=== PATIENT | male | born 1970 | race Caucasian/White ===

== ENCOUNTER 2016-09-15 08:22 | Day surgery (SDC) | payer MEDICARE, OTHER ==
[2016-09-07 12:10] VITALS: BMI 28.1
[~2016-09-15 08:22] MED LIST: LACTATED RINGERS 1,000 ML IV SCH
[2016-09-15] MEDS ORDERED: LIDOCAINE 1% 20 ML VIAL (10MG/ML) FOR IV START INTRADERMA ONE (09:09)
[2016-09-15 09:10] LABS: Glucose,Whole Blood 134 mg/dL (75-99)
[2016-09-15 09:11] VITALS: TEMP 97.5
[2016-09-15] MEDS ORDERED: LIDOCAINE 1% INJ 10MG/ML (20 ML MDV) ONE (09:14)
[2016-09-15] MEDS ORDERED: PROPOFOL 10 MG/ML 20 ML VIAL IV ONE (09:14)
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
--- NOTE | 2016-09-15 09:31 | P.OP ---
Date of Procedure: 09/15/16 Preoperative Diagnosis: GI bleed Postoperative Diagnosis: External hemorrhoids Diverticulosis Rectal polyp Procedure(s) Performed: Colonoscopy Anesthesia: MAC Surgeon: Isidro Ervin Pathology: other (Rectal polyp) Condition: stable Disposition: PACU Description of Procedure: The patient's placed on the endoscopy table in the lateral position. He received IV sedation. Digital rectal exam was performed which revealed external and internal hemorrhoids. The flexible colonoscope was then placed patient anus passed throughout the entire colon. The ileocecal valve was visualized. The cecum, ascending and transverse colon appeared normal. In the descending; was mild diverticular changes. Scope was then brought back the rectum and this appeared normal. Scope was withdrawn for patient.
[2016-09-15 10:15] VITALS: BP 127/80; PULSE 67; RESP 18
--- NOTE | 2016-09-18 11:49 | CDI ---
Pathology received a biopsy, yet there is not a biopsy documented as being done in procedure description on your operative note. Was a biopsy done? Please issue an addendum to your operative reporting stating if a biopsy was done or not done. If it was done, please describe the biopsy method. Thank you. GIBSON Hawk
== END 2016-09-15 10:28 | disposition home or self-care (01) ==
LOC: ORWHC2ENDO 08:22
PROVIDERS: ATTEND Surgery
DX: K64.4 Residual hemorrhoidal skin tags (principal); K64.8 Other hemorrhoids; K57.30 Diverticulosis of large intestine without perforation or abscess without bleeding; K62.1 Rectal polyp; Z87.19 Personal history of other diseases of the digestive system; E11.9 Type 2 diabetes mellitus without complications; I10 Essential (primary) hypertension; E78.5 Hyperlipidemia, unspecified; Z87.828 Personal history of other (healed) physical injury and trauma; Z79.84 Long term (current) use of oral hypoglycemic drugs; Z79.82 Long term (current) use of aspirin; Z79.899 Other long term (current) drug therapy; F17.200 Nicotine dependence, unspecified, uncomplicated
CPT/HCPCS: 88305; 45380; J2001; J2704

== ENCOUNTER 2021-03-06 00:25 | Observation (INO) | payer MEDICARE, OTHER ==
--- NOTE | 2021-03-06 00:52 | XR ---
EXAMINATION TYPE: XR chest 2V DATE OF EXAM: 03/06/2021 COMPARISON: 11/23/2012 HISTORY: Chest pain TECHNIQUE: FINDINGS: Heart and mediastinum are normal. Lungs are clear. Diaphragm is normal. Bony thorax is inta ct. IMPRESSION: Normal chest. No change.
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
[2021-03-06 01:07] LABS: Basophils % (A) 0 %; Eosinophils # (A) 0.1 k/uL (0-0.7); Eosinophils % (A) 2 %; HCT 37.8 % (39.0-53.0); Lymphocytes # (A) 1.6 k/uL (1.0-4.8); Lymphocytes % (A) 20 %; MCH 30.3 pg (25.0-35.0); MCHC 34.4 g/dL (31.0-37.0); Monocytes # (A) 0.4 k/uL (0-1.0); Monocytes % (A) 5 %; Neutrophils # (A) 5.8 k/uL (1.3-7.7); Neutrophils % (A) 72 %; Platelet Count 348 k/uL (150-450); RBC 4.29 m/uL (4.30-5.90); RDW 13.6 % (11.5-15.5); WBC 8.1 k/uL (3.8-10.6)
[2021-03-06 01:38] LABS: Prothrombin Time 10.3 sec (9.0-12.0)
[2021-03-06 01:40] LABS: ALT 18 U/L (4-49); African American GFR (CKD) >90 (>60 ml/min/1.73 sqM); Albumin 4.6 g/dL (3.5-5.0); Alcohol <10 mg/dL; Anion Gap 11 mmol/L; Blood Urea Nitrogen 11 mg/dL (9-20); Calcium 10.1 mg/dL (8.4-10.2); Carbon Dioxide 22 mmol/L (22-30); Chloride 99 mmol/L (98-107); Glucose 113 mg/dL (74-99); Lipase 1874 U/L (23-300); Non-African American GFR(CKD) >90 (>60 ml/min/1.73 sqM); Sodium 132 mmol/L (137-145); Total Bilirubin 0.4 mg/dL (0.2-1.3); Total Protein 7.3 g/dL (6.3-8.2)
[2021-03-06 01:48] LABS: Partial Thromboplastin Time 21.6 sec (22.0-30.0)
[2021-03-06 02:24] LABS: Potassium 4.4 mmol/L (3.5-5.1)
[2021-03-06] MEDS ORDERED: NITROGLYCERIN SL TABS 0.4 MG TAB SUBLINGUAL PRN (02:24)
[2021-03-06 02:25] LABS: AST 27 U/L (17-59); Alkaline Phosphatase 81 U/L (38-126)
[2021-03-06] MEDS ORDERED: SODIUM CHLORIDE 0.9% 1,000 ML IV STA (02:28)
[2021-03-06 06:31] LABS: Glucose,Whole Blood 105 mg/dL (75-99)
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
[2021-03-06] MEDS: ASPIRIN 81 MG PO SCH ×2 (08:51→11:56)
[2021-03-06] MEDS ORDERED: lisinopriL 10 MG TAB PO SCH (09:00)
[2021-03-06] MEDS ORDERED: FENOFIBRATE 160 MG TAB PO SCH (09:00)
[2021-03-06] MEDS ORDERED: FLUoxetine HCL 20 MG CAP PO SCH (09:00)
[2021-03-06] MEDS ORDERED: LINAGLIPTIN 5 MG TABLET PO SCH (09:00)
[2021-03-06] MEDS ORDERED: ATORVASTATIN 40 MG TAB PO SCH (09:00)
[2021-03-06] MEDS ORDERED: metFORMIN 500 MG TAB PO SCH (09:00)
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
--- NOTE | 2021-03-06 12:01 | ECHOF ---
Referral Reason:chest pain LV function MEASUREMENTS -------- HEIGHT: 185.4 cm WEIGHT: 83.9 kg BP: IVSd: 1.2 cm (0.6 - 1.1) LVIDd: 3.5 cm (3.9 - 5.3) LVPWd: 1.2 cm (0.6 - 1.1) IVSs: 1.7 cm LVIDs: 2.5 cm LVPWs: 1.7 cm LAESV Index (A-L): 19.09 ml/m Ao Diam: 3.2 cm (2.0 - 3.7) AV Cusp: 2.0 cm (1.5 - 2.6) LA Diam: 3.4 cm (2.7 - 3.8) MV EXCURSION: 19.089 mm (> 18.000) MV EF SLOPE: 122 mm/s (70 - 150) EPSS: 2.8 cm MV E Ash: 0.82 m/s MV DecT: 196 ms MV A Ash: 0.90 m/s MV E/A Ratio: 0.90 AR PHT: 639 ms RAP: 5.00 mmHg RVSP: 18.23 mmHg FINDINGS -------- This was a technically good study. The left ventricular size is normal. There is mild concentric left ventricular hypertrophy. Overa ll left ventricular systolic function is mildly impaired with, an EF between 45 - 50 %. The diastol ic filling pattern is normal for the age of the patient 9.92. The right ventricle is normal in size. The left atrial size is normal. Normal LA size by volume 22+/-6 ml/m2. The right atrial size is normal. The aortic valve is trileaflet and appears structurally normal. Trace amount of aortic regurgitatio n. The mitral valve is normal. Mild mitral regurgitation is present. The tricuspid valve appears structurally normal. Trace tricuspid regurgitation present. Right rosalia tricular systolic pressure is normal at < 35 mmHg. There is no pulmonic regurgitation present. The aortic root size is normal. Normal inferior vena cava with normal inspiratory collapse consistent with estimated right atrial pre ssure of 5 mmHg. There is no pericardial effusion. CONCLUSIONS -------- 1. The left ventricular size is normal. 2. There is mild concentric left ventricular hypertrophy. 3. Overall left ventricular systolic function is mildly impaired with, an EF between 45 - 50 %. 4. The diastolic filling pattern is normal for the age of the patient 9.92 5. Trace amount of aortic regurgitation. 6. Mild mitral regurgitation is present. 7. Trace tricuspid regurgitation present. 8. There is no pericardial effusion. LIQUOR MAKER: Yakelin Ortiz RDCS
[2021-03-06 12:02] VITALS: BP 119/77; PULSE 61; RESP 20; TEMP 97.7
[2021-03-06 12:07] LABS: Glucose,Whole Blood 123 mg/dL (75-99)
[2021-03-06] MEDS ORDERED: DOBUTamine DRIP for NUC MED 500 MG in DEXTROSE/WATER 1 250ML.BAG IV PRN (13:06)
[2021-03-06] MEDS ORDERED: clonazePAM 1 MG TAB PO SCH (21:00)
[2021-03-07] MEDS ORDERED: ASPIRIN 325 MG TAB PO SCH (09:00)
--- NOTE | 2021-03-07 11:04 | ECHOS ---
STRESS ECHOCARDIOGRAM DATE OF STUDY: 03/06/2021 INDICATIONS: Chest discomfort. BASELINE HEART RATE: 56 BASELINE BLOOD PRESSURE: 131/85 MAXIMUM HEART RATE: 148 MAXIMUM BLOOD PRESSURE: 157/80 85% MPHR: 145 100% MPHR: 175 METS: NA MAXIMUM STAGE REACHED: 4 TOTAL EXERCISE TIME: 12:13 infusion time CLINICAL INFORMATION: STRESS DATA: Pre-testing physical examination showed a heart rate of 56, pressure 131/85 mmHg. Baseline EKG showed sinus mechanism. Dobutamine infusion at a dose of 10 mcg/kg per minute was initiated and increased to 40 mcg/kg per minute per protocol. The max heart rate was 148, which is about 87% of maximum predicted heart rate. Maximum blood pressure was 152/61 mmHg. Clinically the patient did not have any symptoms of chest pain or chest discomfort and the EKG did not show any significant ST or T-wave abnormalities concerning for ischemia. ANALYSIS: Echocardiogram images from parasternal long axis view, parasternal short axis view, apical 4-chamber and apical 2-chamber views were obtained as the baseline images, at low-dose dobutamine infusion, at the peak of the heart rate as well as on recovery, and the echocardiogram images showed good augmentation in the left ventricular systolic function without any evidence of wall motion abnormalities concerning for ischemia. CONCLUSION: 1. Normal EKG in response to dobutamine. 2. Normal echocardiogram in response to dobutamine. MMODL / IJN: [id number] /
== END 2021-03-06 17:28 | disposition home or self-care (01) ==
LOC: EC 00:25 → 3SCARD 02:48
PROVIDERS: ADMIT Family Medicine; ATTEND Family Medicine
DX: R07.89 Other chest pain (principal); R06.02 Shortness of breath; E11.9 Type 2 diabetes mellitus without complications; I10 Essential (primary) hypertension; E78.5 Hyperlipidemia, unspecified; F31.9 Bipolar disorder, unspecified; F60.5 Obsessive-compulsive personality disorder; F31.30 Bipolar disorder, current episode depressed, mild or moderate severity, unspecified; F17.210 Nicotine dependence, cigarettes, uncomplicated; Z20.822 Contact with and (suspected) exposure to COVID-19; Z79.84 Long term (current) use of oral hypoglycemic drugs; Z79.899 Other long term (current) drug therapy; Z88.5 Allergy status to narcotic agent; Z87.828 Personal history of other (healed) physical injury and trauma; Z96.642 Presence of left artificial hip joint; Z87.19 Personal history of other diseases of the digestive system; Z82.49 Family history of ischemic heart disease and other diseases of the circulatory system; Z71.6 Tobacco abuse counseling; Z71.41 Alcohol abuse counseling and surveillance of alcoholic
CPT/HCPCS: 99285; 36415; 94760; 93005; 93306; 93351; 83880; 80053; 83690; 83735; 84484; 85025; 85610; 85730; 87635; 71046; G0378; G0480; J1250; 80320

== ENCOUNTER 2021-03-24 19:08 | Emergency (ER) | payer MEDICARE, OTHER ==
[2021-03-24 19:30] VITALS: RESP 18
[2021-03-24 20:56] LABS: Amphetamine Screen,Urine Not Detected (NotDetected); Barbiturate Screen,Urine Not Detected (NotDetected); Benzodiazepines Screen,Urine Detected (NotDetected); Cocaine Screen,Urine Not Detected (NotDetected); Methadone Screen, Urine Not Detected (NotDetected); Opiate Screen,Urine Not Detected (NotDetected); Oxycodone Screen, Urine Not Detected (NotDetected); Phencyclidine Screen,Urine Not Detected (NotDetected); Tricyclic Antidepressant,Urine Not Detected (NotDetected); Urn Cannabinoid Scrn Not Detected (NotDetected)
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
[2021-03-24 22:30] VITALS: BP 133/94; PULSE 78
[2021-03-24 23:10] VITALS: TEMP 97.9
== END 2021-03-24 23:04 | disposition home or self-care (01) ==
LOC: EC 19:08
DX: F31.9 Bipolar disorder, unspecified (principal); I10 Essential (primary) hypertension; E11.9 Type 2 diabetes mellitus without complications; Z87.891 Personal history of nicotine dependence; Z88.5 Allergy status to narcotic agent; Z79.84 Long term (current) use of oral hypoglycemic drugs; Z79.899 Other long term (current) drug therapy
CPT/HCPCS: 80306; 82075; 99285

== ENCOUNTER 2021-04-02 00:32 | Inpatient (IN) | payer MEDICARE, MEDICAID ==
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
[2021-04-02] MEDS ORDERED: IBUPROFEN 600 MG TAB PO STA (02:25)
[2021-04-02 03:11] LABS: Appearance,Urine Clear (Clear); Bilirubin,Urine Negative (Negative); Blood,Urine Negative (Negative); Color,Urine Yellow; Glucose,Urine (UA) Negative (Negative); Ketones,Urine Negative (Negative); Leukocyte Esterase,Urine Negative (Negative); Nitrite,Urine Negative (Negative); PH, Urine 6.5 (5.0-8.0); Protein,Urine Negative (Negative); Specific Gravity,Urine 1.017 (1.001-1.035); Urobilinogen,Urine <2.0 mg/dL (<2.0)
[2021-04-02] MEDS ORDERED: ACETAMINOPHEN TAB 325 MG TAB PO PRN (03:36)
[2021-04-02] MEDS ORDERED: MAG HYDROX/AL HYDROX/SIMETH 30 ML CUP PO PRN (03:36)
[2021-04-02] MEDS ORDERED: MAGNESIUM HYDROXIDE 2,400 MG/10 ML CUP PO PRN (03:36)
[2021-04-02] MEDS ORDERED: LORazepam 1 MG TAB PO PRN ×2 (03:36→03:53)
[2021-04-02] MEDS ORDERED: HALOPERIDOL LACTATE 5 MG/ML 1 ML VIAL IM PRN (03:50)
[2021-04-02] MEDS ORDERED: haloperidoL 5 MG TAB PO PRN (03:50)
[2021-04-02] MEDS ORDERED: LORazepam 2 MG/ML INJ IM PRN ×2 (03:50→04:02)
[2021-04-02 04:07] LABS: Amphetamine Screen,Urine Not Detected (NotDetected); Barbiturate Screen,Urine Not Detected (NotDetected); Benzodiazepines Screen,Urine Not Detected (NotDetected); Cocaine Screen,Urine Not Detected (NotDetected); Methadone Screen, Urine Not Detected (NotDetected); Opiate Screen,Urine Not Detected (NotDetected); Oxycodone Screen, Urine Not Detected (NotDetected); Phencyclidine Screen,Urine Not Detected (NotDetected); Tricyclic Antidepressant,Urine Detected (NotDetected); Urn Cannabinoid Scrn Not Detected (NotDetected)
[2021-04-02 06:54] LABS: Basophils % (A) 0 %; Eosinophils # (A) 0.3 k/uL (0-0.7); Eosinophils % (A) 4 %; HCT 38.9 % (39.0-53.0); HGB 12.6 gm/dL (13.0-17.5); Lymphocytes # (A) 2.1 k/uL (1.0-4.8); Lymphocytes % (A) 33 %; MCH 29.5 pg (25.0-35.0); MCHC 32.4 g/dL (31.0-37.0); Mean Platelet Volume 6.9; Monocytes # (A) 0.3 k/uL (0-1.0); Monocytes % (A) 5 %; Neutrophils # (A) 3.5 k/uL (1.3-7.7); Neutrophils % (A) 56 %; Platelet Count 275 k/uL (150-450); RBC 4.28 m/uL (4.30-5.90); RDW 13.4 % (11.5-15.5); WBC 6.3 k/uL (3.8-10.6)
[2021-04-02 07:06] LABS: ALT 22 U/L (4-49); AST 27 U/L (17-59); African American GFR (CKD) >90 (>60 ml/min/1.73 sqM); Albumin 4.3 g/dL (3.5-5.0); Alkaline Phosphatase 77 U/L (38-126); Anion Gap 12 mmol/L; Bilirubin, Delta 0.2 mg/dL (0.0-0.2); Bilirubin,Unconjugated 0.1 mg/dL (0.0-1.1); Blood Urea Nitrogen 20 mg/dL (9-20); Carbon Dioxide 21 mmol/L (22-30); Chloride 104 mmol/L (98-107); Glucose 138 mg/dL (74-99); Non-African American GFR(CKD) >90 (>60 ml/min/1.73 sqM); Potassium 4.7 mmol/L (3.5-5.1); Sodium 137 mmol/L (137-145); Total Bilirubin 0.3 mg/dL (0.2-1.3)
[2021-04-02] MEDS: LINAGLIPTIN 5 MG TABLET PO SCH (08:19)
[2021-04-02] MEDS: metFORMIN 500 MG TAB PO SCH ×2 (08:19→17:48)
[2021-04-02] MEDS: lisinopriL 10 MG TAB PO SCH (08:19)
[2021-04-02 08:20] LABS: Glucose,Whole Blood 95 mg/dL (75-99)
[2021-04-02] MEDS: FENOFIBRATE 160 MG TAB PO SCH (08:20)
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
[2021-04-02 14:55] VITALS: BMI 23.3
[2021-04-02 17:38] LABS: Glucose,Whole Blood 83 mg/dL (75-99)
[2021-04-02 20:49] LABS: Chol/HDL Ratio 1.86 Ratio; LDL Cholesterol,Calculated 24.3 mg/dL (0.0-131.0)
[2021-04-02] MEDS ORDERED: clonazePAM 1 MG TAB PO SCH (21:00)
[2021-04-02] MEDS: PALIPERIDONE 3 MG TAB.ER.24 PO SCH (21:22)
[2021-04-02] MEDS: clonazePAM 0.5 MG TAB PO SCH (21:22)
[2021-04-02] MEDS: ATORVASTATIN 20 MG TAB PO SCH (21:22)
[2021-04-03 07:56] LABS: Glucose,Whole Blood 104 mg/dL (75-99)
[2021-04-03] MEDS: lisinopriL 10 MG TAB PO SCH (07:57)
[2021-04-03] MEDS: LINAGLIPTIN 5 MG TABLET PO SCH (07:57)
[2021-04-03] MEDS: FENOFIBRATE 160 MG TAB PO SCH (07:57)
[2021-04-03] MEDS: clonazePAM 0.5 MG TAB PO SCH (07:57)
[2021-04-03] MEDS: metFORMIN 500 MG TAB PO SCH ×2 (07:57→18:17)
[2021-04-03 08:58] LABS: ALT 26 U/L (4-49); AST 30 U/L (17-59); African American GFR (CKD) >90 (>60 ml/min/1.73 sqM); Albumin 4.7 g/dL (3.5-5.0); Alkaline Phosphatase 75 U/L (38-126); Anion Gap 10 mmol/L; Blood Urea Nitrogen 12 mg/dL (9-20); Calcium 10.3 mg/dL (8.4-10.2); Carbon Dioxide 28 mmol/L (22-30); Chloride 100 mmol/L (98-107); Glucose 116 mg/dL (74-99); Non-African American GFR(CKD) >90 (>60 ml/min/1.73 sqM); Potassium 5.1 mmol/L (3.5-5.1); Sodium 138 mmol/L (137-145); Total Bilirubin 0.4 mg/dL (0.2-1.3); Total Protein 7.5 g/dL (6.3-8.2)
--- NOTE | 2021-04-03 09:38 | P.PN ---
Progress Note - Text Progress Note Date: 04/03/21 Interval History: Patient was seen lying in his bed this morning and was directable and agreeable to speak with commercial real estate underwriter in the office. [ Patient appears to be more appropriately with commercial real estate underwriter. Continues to be concrete in his answers. He states that overall he is doing a bit better." He was feeling anxious this morning around 6 AM and required an Ativan because he "wanted to go back to sleep". He claims that the paliperidone has been helping his thoughts. He states that he is not feeling daniels icidal today and does not feel any "gum pressure"]. He states that he was able to sleep throughout the night. He claims he has a fair appetite. He appears to be more goal oriented and more logical in his answers. At this time patient denies any suicidal or homical ideations, intent or plan. Patient denies any auditory, visual hallucinations and denies any paranoia or delusions. Patient denies any side effects from the medications and has been compliant with meds. Mental Status Exam: General Appearance: Patient appears to be directable, stated age is alert, and attempts to cooperate. Patient appears to have improving hygiene and grooming. Several missing teeth. Behavior: Patient is seated without any agitated behavior. Speech: Patient's speech is fluent and nonpressured. [place]. Mood/Affect: Patient reports their mood is "better", affect is congruent and constricted. Suicidality/Homicidality: Patient denies having any homicidal ideation intent or plan. He is denying any suicidal thoughts at this time. Perceptions: Patient denies any visual hallucinations and denies any auditory hallucinations Though content/process: [place], poverty of content. More logical today. Memory and concentration: AOX3, grossly intact for the purposes of this session. Judgment and insight: Chronically poor, improving moderately Assessment Psychosis unspecified History of traumatic brain injury Anxiety disorder unspecified likely OCD Plan: -Patient continues to meet criteria for inpatient psychiatric admission for symptom stabilization and safety. Patient has signed [adult voluntary form and] [medication consent] and was placed in patient's chart. -Medications: Continue paliperidone 3 mg daily at bedtime for psychosis, Luvox 50 mg twice a day for anxiety/mood, changed Klonopin to 1 mg daily for anxiety. -When necessary Ativan and Haldol for agitation/aggression. -NRT - not needed as patient does not smoke -SW on board for discharge planning. Encouraged the patient to participate in milieu. If patient continues improving than likely discharge back home tomorrow.
[2021-04-03 17:55] LABS: Glucose,Whole Blood 104 mg/dL (75-99)
[2021-04-03] MEDS: ATORVASTATIN 20 MG TAB PO SCH (20:00)
[2021-04-03] MEDS: PALIPERIDONE 3 MG TAB.ER.24 PO SCH (20:00)
[2021-04-04 02:50] VITALS: TEMP 97.6
[2021-04-04] MEDS: FENOFIBRATE 160 MG TAB PO SCH (08:32)
[2021-04-04] MEDS: lisinopriL 10 MG TAB PO SCH (08:32)
[2021-04-04] MEDS: metFORMIN 500 MG TAB PO SCH (08:32)
[2021-04-04] MEDS: LINAGLIPTIN 5 MG TABLET PO SCH (08:33)
[2021-04-04 08:34] VITALS: BP 112/75; PULSE 103; RESP 18
[2021-04-04 08:35] LABS: Glucose,Whole Blood 236 mg/dL (75-99)
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
[2021-04-04] MEDS ORDERED: clonazePAM 1 MG TAB PO SCH (09:00)
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
== END 2021-04-04 13:24 | disposition home or self-care (01) | DRG 885 ==
LOC: EC 00:32 → 3MHU 03:34
PROVIDERS: ADMIT Psychiatry & Neurology Psychiatry; ATTEND Psychiatry & Neurology Psychiatry
DX: F29 Unspecified psychosis not due to a substance or known physiological condition (principal); R45.851 Suicidal ideations; E11.9 Type 2 diabetes mellitus without complications; F31.30 Bipolar disorder, current episode depressed, mild or moderate severity, unspecified; F41.9 Anxiety disorder, unspecified; F60.5 Obsessive-compulsive personality disorder; G89.29 Other chronic pain; I10 Essential (primary) hypertension; K08.89 Other specified disorders of teeth and supporting structures; Z72.0 Tobacco use; Z79.84 Long term (current) use of oral hypoglycemic drugs; Z79.899 Other long term (current) drug therapy; Z20.822 Contact with and (suspected) exposure to COVID-19; Z87.820 Personal history of traumatic brain injury; Z87.828 Personal history of other (healed) physical injury and trauma; Z96.642 Presence of left artificial hip joint; Z82.49 Family history of ischemic heart disease and other diseases of the circulatory system; R45.87 Impulsiveness
CPT/HCPCS: 80053; 80061; 80306; 81003; 82248; 83036; 84443; 85025; 87635; 99284

== ENCOUNTER 2021-12-10 03:18 | Emergency (ER) | payer MEDICARE, OTHER ==
[2021-12-10 06:13] VITALS: BP 126/77; PULSE 84; RESP 17; TEMP 97.6
[2021-12-10] MEDS ORDERED: ACETAMINOPHEN TAB 500 MG TAB PO STA (06:13)
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
== END 2021-12-10 10:55 | disposition home or self-care (01) ==
LOC: EC 03:18
DX: L25.9 Unspecified contact dermatitis, unspecified cause (principal); E11.9 Type 2 diabetes mellitus without complications; I10 Essential (primary) hypertension; Z88.5 Allergy status to narcotic agent; Z87.891 Personal history of nicotine dependence
CPT/HCPCS: 99282

== ENCOUNTER → 2024-07-18 | Outpatient (CLI) | payer MEDICARE, OTHER ==
--- NOTE | 2024-07-18 16:34 | US ---
EXAMINATION TYPE: US kidneys/renal and bladder DATE OF EXAM: 07/18/2024 COMPARISON: US(06/12/2014) CLINICAL INDICATION: Male, 53 years old with history of R77.0 ABNORMALITY OF ALBUMIN; TECHNIQUE: Grayscale imaging of the bilateral kidneys and urinary bladder: FINDINGS: EXAM MEASUREMENTS: Right Kidney: 12.3x5.1x6.0 cm Left Kidney: 11.9x6.3x4.4 cm Right Kidney: No hydronephrosis or masses seen. Lobulated renal contour. Left Kidney: Echogenic foci seen(mid): 0.8cm. No hydronephrosis. Bladder: wnl Bilateral Jets seen: Yes IMPRESSION: 1. No hydronephrosis. 2. 8 mm nonobstructive left midpole renal stone. [facility], , 07/18/2024 4:32 PM
== END | disposition home or self-care (01) ==
LOC: RADUSWWP 15:19
PROVIDERS: ATTEND Family Medicine
DX: N20.0 Calculus of kidney (principal); R77.0 Abnormality of albumin
CPT/HCPCS: 76770

== ENCOUNTER → 2024-08-25 | Outpatient (CLI) | payer MEDICARE, OTHER ==
--- NOTE | 2024-08-25 11:52 | XR ---
EXAMINATION TYPE: XR Hip Complete LT DATE OF EXAM: 08/25/2024 11:27 AM INDICATION: Patient age:Male; 53 years old; Reason for study: M25.552 LEFT HIP PAIN; PHH. pain COMPARISON: None. TECHNIQUE: The left hip was examined in the frontal and lateral projections and a AP pelvis. FINDINGS: Postsurgical changes with fixation hardware involving the proximal femur. Hardware appears intact with appropriate alignment. There is no surrounding periprosthetic lucency. No evidence of any acute osseous pathology, joint dislocation, or soft tissue swelling. No evidence for degenerative ch manan of the hip. Left pelvic phleboliths. IMPRESSION: 1. No acute osseous pathology. 2. Post surgical changes of the proximal left femur. Hardware appears intact. [facility], , 08/25/2024 11:49 AM
== END | disposition home or self-care (01) ==
LOC: RADXRMAIN 11:11
PROVIDERS: ATTEND Family Medicine
DX: M25.552 Pain in left hip (principal); Z98.890 Other specified postprocedural states
CPT/HCPCS: 73502